=== PATIENT | female | born 1955 | race Caucasian/White ===

== ENCOUNTER 2024-01-26 12:14 | Emergency (ER) | payer BC, OTHER ==
[~2024-01-26] VITALS: Ht 165.1 cm; Wt 62.6 kg
[2024-01-26 12:32] VITALS: BP 114/49; PULSE 66; RESP 18; TEMP 97.4; O2SAT 96
[2024-01-26] MEDS ORDERED: IBUP-2213 PO (12:55)
[2024-01-26] MEDS ORDERED: ACET-8905 PO (12:55)
[2024-01-26] MEDS: KETOROLAC 60 MG/2 ML VIAL IM ONE (13:12)
== END 2024-01-26 13:50 | disposition home or self-care (01) ==
LOC: MED 12:14
DX: S93.402A Sprain of unspecified ligament of left ankle, initial encounter (principal); F17.200 Nicotine dependence, unspecified, uncomplicated; Z90.710 Acquired absence of both cervix and uterus; Z98.890 Other specified postprocedural states; Z79.899 Other long term (current) drug therapy; W18.39XA Other fall on same level, initial encounter; Y92.89 Other specified places as the place of occurrence of the external cause; Y93.89 Activity, other specified; Y99.8 Other external cause status
CPT/HCPCS: 73610; 96372; 99283; J1885; Q0092